=== PATIENT | female | born 2000 | race Caucasian/White ===

== ENCOUNTER 2021-02-05 20:53 | Inpatient (IN) ==
[2021-02-05 22:46] LABS: Basophils # (auto) 0.02 K/uL (0-0.2); Basophils % (auto) 0.3 %; Eosinophils # (auto) 0.05 K/uL (0-0.5); Eosinophils % (auto) 0.7 %; Hematocrit (blood only) 37.4 % (37-47); Immature Granulocytes # (auto) 0.01 K/uL (0.00-0.02); Immature Granulocytes % (auto) 0.1 %; Lymphocytes # (auto) 2.93 K/uL (1.2-3.4); Lymphocytes % (auto) 42.6 %; Mean Corpuscular Hemoglobin 32.9 pg (25-34); Mean Corpuscular Hgb Conc 34.8 g/dL (32-36); Mean Corpuscular Volume 94.7 fL (80-100); Mean Platelet Volume 9.2 fL (7.4-10.4); Monocytes # (auto) 0.48 K/uL (0.11-0.59); Neutrophils # (auto) 3.38 K/uL (1.4-6.5); Neutrophils % (auto) 49.3 %; Platelet Count 301 K/uL (130-400); RDW Coefficient of Variation 12.3 % (11.5-14.5); RDW Standard Deviation 42.2 fL (36.4-46.3); Red Blood Count 3.95 M/uL (4.2-5.4); White Blood Count 6.87 K/uL (4.8-10.8)
[2021-02-05 22:53] LABS: Albumin Level 2.8 gm/dl (3.4-5.0); BUN Creatinine Ratio 17.4 (10-20); Calcium 8.3 mg/dl (8.5-10.1); Creatinine Clr Calc Pharmacy 41.2 ml/min; Est GFR (African American) 39.9 ml/min; Est GFR (Non-African American) 34.4 ml/min; Magnesium 2.1 mg/dl (1.8-2.4); Potassium 5.9 mmol/L (3.5-5.1)
[2021-02-05 22:56] LABS: INR 1.4 (0.9-1.1); Partial Thromboplastin Ratio 1.3
[2021-02-05] MEDS ORDERED: SODIUM CHLORIDE 0.9% 1000ML 1,000 ML IV ONE (23:00)
[2021-02-05 23:04] LABS: Albumin Globulin Ratio 0.7 (0.9-2); Bilirubin,Total 0.8 mg/dl (0.2-1); Globulin 3.8 gm/dl (2.5-4.0); Thyroid Stimulating Hormone 13.7 uIu/ml (0.300-4.500); Total Protein 6.6 gm/dl (6.4-8.2)
[2021-02-05 23:25] LABS: Appearance Urine Clear (Clear); Bilirubin Urine Negative (Negative); Blood Urine Negative (Negative); Color Urine Yellow; Glucose Urine UA Negative (Negative); Ketones Urine Negative (Negative); Leukocyte Esterase Urine Negative (Negative); Nitrite Urine Negative (Negative); Protein Urine Negative (Negative); Specific Gravity Urine 1.011 (1.000-1.030); Urobilinogen Urine Negative (Negative)
[2021-02-06] MEDS ORDERED: MoRPHine SULFATE 2 MG/ML CARP IV STA (00:35)
[2021-02-06] MEDS ORDERED: SODIUM CHLORIDE 0.9% 1000ML 1,000 ML IV ONE (01:15)
[2021-02-06] MEDS ORDERED: CALCIUM GLUCONATE 1,000 MG/60 ML BAG IV STA (01:15)
[2021-02-06 02:24] LABS: Amphetamines+Metham, Urine Neg (Neg); Barbiturates, Urine Neg (Neg); Benzodiazepine, Urine Neg (Neg); Cocaine, Urine Neg (Neg); MDMA (Ecstacy), Urine Neg (Neg); Methadone, Urine Neg (Neg); Opiate, Urine Neg (Neg); Phencyclidine, Urine Neg (Neg)
[2021-02-06 02:37] LABS: T4 Free Thyroxine 1.21 ng/dl (0.8-1.6)
[2021-02-06] MEDS ORDERED: LORazepam 1 MG/2 ML VIAL IV STA (02:51)
--- NOTE | 2021-02-06 02:52 | History & Physical Report ---
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 Concern for LLE DVT with hx Superior Sagittal Sinus thromboembolism, stroke, and seizure -With history of clotting disorder and subtherapeutic on Warfarin -US doppler negative for clot -CK 72, unlikely rhabdomyolysis -At this time improved redness and warmth -Will bridge with Lovenox until INR appropriate 2-3 on warfarin -Will continue Keppra for seizure prophylaxis Alcohol Use disorder with current withdrawal -Drinks 15 hard liquor shots daily (vodka, whisky, etc) -Patient with last drink 6PM today -Alcohol level negative at this time, UDS negative -Noting she feels significant anxiety at this time, states she normally drinks to prevent withdrawals -Will give 2mg Ativan now -Will start patient on AWSS protocol with gabapentin load and Ativan PRN pushes -Folic Acid and Thiamine levels in AM -Daily Folic acid and Thiamine -Banana bag x1 now -Discussed with patient about outpatient treatment options including Naltrexone, she is interested -She states she would be unable to participate in rehab due to her parents -She DOES NOT want her parents to know about her current stay or alcohol use -Would recommend psych consult once patient is no longer in withdrawal Transaminitis -Suspect due to alcohol use -Will check hepatitis panel -CT abdomen stat read noting fatty liver without acute concerns at this time -Repeat CMP in AM RED -Creatinine elevated 2.02, suspect pre-renal etiology -Hydrated with NSS bolus x2L in the ED -Will continue with LR 100ml/hr x1L -Recheck in AM Anxiety/Depression -Suspect that patient has more than just anxiety and depression in addition to her alcohol use disorder -Will continue home Cymbalta and Abilify at this time -Patient also noting recent incident of Plan B use, but did not want to discuss the details leading to the situation at this time. 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 Patient notes that due to her history of a clotting disorder she is concerned that she may have a DVT and upon speaking with her Doughnut Dough Mixer she was instructed to present to the ED for evaluation and treatment. She notes that she had a blood clot in her head in December 31, 2020 while she was [facility] and that it caused her to have as stroke in addition to a suspected seizure. She has been taking Warfarin since then in addition to Keppra. Patient notes that while her leg has started feeling better, she does also note concerns regarding her alcohol use. She notes that she drinks 15 shots of hard liquors daily and that she has been doing so all summer. She notes that she started drinking at the end of high school and it has only worsened. She states that there have been several stressful factors leading her to drink, including more recently needing to take Plan B 5 days ago for a sexual encounter she did not "want to go into right now." She states that she typically will keep drinking to keep her withdrawal symptoms from coming on. She notes she wants to quit alcohol and wants to get help, however, her "parents won't let me go to rehab because I'll miss school." She states that she knows her drinking is not good for her health alongside her medications. She does endorse some slight abdominal discomfort as well, worse in the RLQ, but that it has not worsened and comes and goes. She is interested in quitting alcohol. She denies any known history of seizures or hallucinations, but is unsure if her previous seizure was from alcohol withdrawal vs her stroke. She currently notes significant anxiety and feelings as though she is "about to withdraw." She denies any fever, chills, SOB, chest pain, dysuria, hematuria, headache. Med Hx: Asthma, Anxiety/Depression, Clotting disorder, Superior Sagittal Sinus thromboembolism, Stroke, Seizure disorder, Alcohol use disorder Surg Hx: Sinus surgery, wisdom teeth Soc Hx: Drinks 15 shots of hard liquor daily, vapes equivalent 1 juul pod daily, last used marijuana 12/21/20 Allergies Allergy/AdvReac Type Severity Reaction Status Date / Time mold Allergy Unknown Verified 02/06/21 01:54 tree and shrub pollen Allergy Unknown Verified 02/06/21 01:54 Home Medications Medication Instructions Recorded Confirmed Type cetirizine 10 mg tablet (Zyrtec) 10 mg PO HS 02/18/18 02/06/21 History duloxetine 60 mg capsule,delayed 60 mg PO HS 02/18/18 02/06/21 History release (Cymbalta) aripiprazole 2 mg tablet 2 mg PO HS 09/29/18 02/06/21 History epinephrine 0.3 mg/0.3 mL 0.3 ml IM UD PRN #1 ea 03/07/19 02/06/21 History injection, auto-injector albuterol sulfate 90 mcg/actuation 2 puff INHALATION Q4H PRN #1 04/28/20 02/06/21 Rx aerosol inhaler inhaler fluticasone furoate 100 1 inh INHALATION DAILY #28 ea 06/15/20 02/06/21 Rx mcg-vilanterol 25 mcg/dose inhalation powder (Breo Ellipta) levetiracetam 500 mg 1,000 mg PO HS 02/06/21 02/06/21 History tablet,extended release 24 hr warfarin 2.5 mg tablet 2.5 mg PO 3XWK 02/06/21 02/06/21 History Past Med/Surg History Medical History (Updated 02/06/21 @ 07:33 by Viji Bautista PA-C) Asthma Thrombosis, superior sagittal sinus UTI (urinary tract infection) Family History Other No pertinent family history Social History Smoking Status: Current every day smoker Tobacco Type: E-cigarettes / Vaping Tobacco Cessation Education Requested by Patient: No Hx Alcohol Use: Yes Alcohol type: hard liquor Hx Substance Use: Yes Last Used Substance Other:: Adderral-Fall 2019; Marijuana mid December 2020 Substance Use Type Other:: Adderral Preferred Language: Armenian Communication Ability: Effective Online Marketing Director Required: No Beliefs That Will Affect Care: None Current Living Situation: Other Current Living Situation Comment: Roommate Other Information That Helps Us Care for You: No Feels Safe at Home: Yes Safety Concerns: Feels Safe At This Time Assistive Devices: None Review of Systems Review of Systems: ROS as above Physical Exam Constitutional: well developed, well nourished and cooperative Eyes: PERRL, conjunctivae normal, anicteric sclerae ENMT: external ear and nose normal, oropharynx normal Neck: trachea midline, no thyromegaly Respiratory: normal respiratory effort; no cough Auscultation: lungs clear to auscultation bilaterally; no diminished lung sounds, no crackles, no rales and no wheezes Cardiovascular: Rate/Rhythm: regular rate and regular rhythm Heart Sounds: normal S1 and normal S2; no murmur and no cardiac rub Vessels: no JVD Extremities: no calf tenderness and no edema Gastrointestinal (Abdomen): Inspection/Auscultation: abdomen normal to inspection and normal bowel sounds; abdomen not distended Percussion/Palpation: + abdomen tender (minimal ttp in right lower quadrant) and abdomen soft; no guarding and abdomen not rigid Musculoskeletal: no cyanosis or clubbing, extremities motor strength 5/5 Head/Neck/Chest: normocephalic and head atraumatic L thigh no longer appears red - patient has picture of the initial redness on phone Skin: no rashes, warm and dry Psychiatric: A+Ox3, euthymic affect Results & Data Results & Data ([facility]) Vital Signs (Past 12 Hours) Vital Signs Temp Pulse Pulse Resp BP BP Pulse Ox 02/06/21 01:38 111 H 18 121/80 100 02/06/21 00:46 103 H 18 121/80 98 02/05/21 23:33 99 02/05/21 23:10 90 18 122/87 99 02/05/21 21:04 37.0 C 100 H 18 129/90 98 Laboratory Results Laboratory Results WBC 6.87 K/uL (4.8-10.8) 02/05/21 22:30 RBC 3.95 M/uL (4.2-5.4) L 02/05/21 22:30 Hgb 13.0 g/dL (12.0-16.0) 02/05/21 22:30 Hct 37.4 % (37-47) 02/05/21 22:30 MCV 94.7 fL (80-100) 02/05/21 22:30 MCH 32.9 pg (25-34) 02/05/21 22: MCHC 34.8 g/dL (32-36) 02/05/21 22:30 RDW Std Deviation 42.2 fL (36.4-46.3) 02/05/21: RDW Coeff of Isela 12.3 % (11.5-14.5) 02/05/21 22: Plt Count 301 K/uL (130-400) 02/05/21 22: MPV 9.2 fL (7.4-10.4) 02/05/21: Immature Gran % (Auto) 0.1 % 02/05/21 22: Neut % (Auto) 49.3 % 02/05/21 22: Lymph % (Auto) 42.6 % 02/05/21 22: [place] % (Auto) 7.0 % 02/05/21 22:30 Eos % (Auto) 0.7 % 02/05/21 22: Baso % (Auto) 0.3 % 02/05/21 22:30 Neut # (Auto) 3.38 K/uL (1.4-6.5) 02/05/21 22: Lymph # (Auto) 2.93 K/uL (1.2-3.4) 02/05/21 22: [place] # (Auto) 0.48 K/uL (0.11-0.59) 02/05/21 22: Eos # (Auto) 0.05 K/uL (0-0.5) 02/05/21 22: Baso # (Auto) 0.02 K/uL (0-0.2) 02/05/21: Immature Gran # (Auto) 0.01 K/uL (0.00-0.02) 02/05/21 22:30 PT 14.0 Seconds (9.0-12.0) H 02/05/21 22:30 INR 1.4 (0.9-1.1) H 02/05/21 22:30 APTT 33.0 Seconds (21.0-31.0) H 02/05/21 22:30 PTT Ratio 1.3 02/05/21 22:30 Sodium 133 mmol/L (136-145) L 02/05/21 22:30 Potassium 5.9 mmol/L (3.5-5.1) H 02/05/21 22:30 Chloride 102 mmol/L (98-107) 02/05/21 22:30 Carbon Dioxide 24 mmol/L (21-32) 02/05/21 22:30 Anion Gap 7.0 (3-11) 02/05/21 22:30 BUN 35 mg/dl (7-18) H 02/05/21 22:30 Creatinine 2.02 mg/dl (0.6-1.2) H 02/05/21 22:30 Est Cr Clr Drug Dosing 41.2 ml/min 02/05/21 22:30 Est GFR ( Amer) 39.9 ml/min 02/05/21 22:30 Est GFR (Non-Af Amer) 34.4 ml/min 02/05/21 22:30 BUN/Creatinine Ratio 17.4 (10-20) 02/05/21 22:30 Glucose 107 mg/dl (70-99) H 02/05/21 22:30 Calcium 8.3 mg/dl (8.5-10.1) L 02/05/21 22: Magnesium 2.1 mg/dl (1.8-2.4) 02/05/21 22:30 Total Bilirubin 0.8 mg/dl (0.2-1) 02/05/21 22:30 AST 154 U/L (15-37) H 02/05/21 22:30 ALT 102 U/L (12-78) H 02/05/21 22:30 Alkaline Phosphatase 184 U/L (45-117) H 02/05/21 22:30 Total Creatine Kinase 72 U/L (26-192) 02/05/21 22:30 Total Protein 6.6 gm/dl (6.4-8.2) 02/05/21 22:30 Albumin 2.8 gm/dl (3.4-5.0) L 02/05/21 22:30 Globulin 3.8 gm/dl (2.5-4.0) 02/05/21 22:30 Albumin/Globulin Ratio 0.7 (0.9-2) L 02/05/21 22:30 Lipase 185 U/L (73-393) 02/05/21 22:30 TSH 13.700 uIu/ml (0.300-4.500) H 02/05/21 22:30 Free T4 1.21 ng/dl (0.8-1.6) 02/05/21 22:30 Urine Color Yellow 02/05/21 23:13 Urine Appearance Clear (Clear) 02/05/21 23:13 Urine pH 7.0 (4.5-7.5) 02/05/21 23:13 Ur Specific [place] 1.011 (1.000-1.030) 02/05/21 23:13 Urine Protein Negative (Negative) 02/05/21 23:13 Urine Glucose (UA) Negative (Negative) 02/05/21 23:13 Urine Ketones Negative (Negative) 02/05/21 23:13 Urine Blood Negative (Negative) 02/05/21 23:13 Urine Nitrite Negative (Negative) 02/05/21 23:13 Urine Bilirubin Negative (Negative) 02/05/21 23:13 Urine Urobilinogen Negative (Negative) 02/05/21 23:13 Ur Leukocyte Esterase Negative (Negative) 02/05/21 23:13 POC Ur Test NEG (NEG) 02/05/21 23:20 Urine Opiates Screen Neg (Neg) 02/05/21 23:13 Ur Methadone, Qual Neg (Neg) 02/05/21 23:13 Urine Barbiturates Neg (Neg) 02/05/21 23:13 Ur Phencyclidine (PCP) Neg (Neg) 02/05/21 23:13 U Amphetamin/Meth Scrn Neg (Neg) 02/05/21 23:13 MDMA (Ecstasy) Screen Neg (Neg) 02/05/21 23:13 U Benzodiazepines Scrn Neg (Neg) 02/05/21 23:13 Ur Cocaine Metabolite Neg (Neg) 02/05/21 23:13 U Marijuana (THC) Screen Neg (Neg) 02/05/21 23:13 Ethyl Alcohol mg/dL < 3.0 mg/dl (0-3) 02/06/21 01:53 COVID-19 Eval Order Covid19 at [facility] 02/05/21 23:19 SARS-CoV-2 (PCR) NEGATIVE (Negative) 02/05/21 23:19 Supervising Physician Co-Signing Physician Notes Attending addendum: I have physically seen this patient, have supervised the medical residents activities, and agree with the H&P unless as otherwise noted. Assessment and Plan: Acute kidney injury/hyperkalemia- Likely due to altered intake associated with alcohol abuse and withdrawal Continue rehydration with normal saline Repeat laboratories in a.m. Calcium gluconate 1 g IV for cardioprotection Abnormal LFTs- Differential including alcoholic hepatitis Persistent to the morning to further imaging Acute hepatitis profile Alcohol abuse/alcohol withdrawal- KATHY S protocol Thiamine 3 mg p.o. daily Folic acid 1 mg p.o. daily Nephrocaps 1 p.o. twice daily Counseling Remaining orders and notations as noted Resident Activity Tracking Resident Involvement: Resident Care Provided Care Provided: Adult Hospital Medicine
[2021-02-06] MEDS ORDERED: GABAPENTIN 800MG ALCOHOL WITHDRAWAL LOAD PO STA (03:04)
[2021-02-06] MEDS ORDERED: GABAPENTIN 800 MG TAB PO STA (03:24)
[2021-02-06] MEDS ORDERED: LORazepam 3 MG/6 ML VIAL IV PRN (04:53)
[2021-02-06] MEDS ORDERED: ALBUTEROL HFA 8 GM INHALER INH PRN (04:53)
[2021-02-06] MEDS ORDERED: ONDANSETRON INJ 2 MG/ML 2 ML VIAL IV PRN (04:53)
[2021-02-06] MEDS ORDERED: GABAPENTIN 400 MG CAP PO ONE (04:53)
[2021-02-06] MEDS ORDERED: ATIVAN IV ALCOHOL WITHDRAWL IV PRN (04:53)
[2021-02-06] MEDS ORDERED: LORazepam 2 MG/4 ML VIAL IV PRN (04:53)
[2021-02-06] MEDS ORDERED: ENOXAPARIN INJ 30 MG/0.3 ML SYR SQ SCH (04:53)
[2021-02-06] MEDS ORDERED: LORazepam 1 MG/2 ML VIAL IV PRN (04:53)
[2021-02-06] MEDS ORDERED: MULTI-VITAMIN INFUSION 10 ML, THIAMINE HCL 100 MG, FOLIC ACID 1 MG in SODIUM CHLORIDE 0... IV ONE (05:15)
[2021-02-06] MEDS ORDERED: LACTATED RINGER'S 1,000 ML IV SCH (06:15)
--- NOTE | 2021-02-06 07:12 | Ultrasound Report ---
BILATERAL LOWER EXTREMITY VENOUS DOPPLER HISTORY: hx clots, b/l leg pain COMPARISON STUDY: None. FINDINGS: There is normal compressibility, flow, and augmentation within the bilateral lower extremit y deep venous systems. IMPRESSION: No DVT within the right or left lower extremity. ACT 112: Negative or not required by law. Electronically signed by: Oswaldo Bryant M.D. 02/06/2021 7:11 AM
[2021-02-06 07:19] LABS: Folate (Folic Acid) 6.8 ng/ml (>5.38)
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
[2021-02-06] MEDS: THIAMINE HCL 100 MG in SYRINGE 9 ML IV SCH (08:01)
[2021-02-06] MEDS: FOLIC ACID 1 MG in SYRINGE 9.8 ML IV SCH (08:01)
--- NOTE | 2021-02-06 08:16 | XRay Report ---
XR chest 1V portable CLINICAL HISTORY: Shortness of breath. COMPARISON STUDY: Chest radiograph February 19, 2018. FINDINGS: Lung volumes are normal. Lungs are clear. There is no pneumothorax or pleural effusion. Car diac size is normal. Mediastinal contours are normal. There is no evidence for pulmonary edema. IMPRESSION: No acute cardiopulmonary findings. ACT 112: Negative or not required by law. Electronically signed by: Bobby Delarosa M.D. 02/06/2021 8:14 AM
[2021-02-06 08:46] LABS: Hepatitis B Surf Ag Rflx Conf Neg (Neg)
[2021-02-06] MEDS: FLUTICASONE/VILANTEROL 100/25MCG 14 PUFFS/INHALER INH SCH (08:52)
[2021-02-06 08:53] LABS: Alanine Aminotransferase 42 U/L (12-78); Albumin Globulin Ratio 1.3 (0.9-2); Albumin Level 3.7 gm/dl (3.4-5.0); Alkaline Phosphatase 39 U/L (45-117); Aspartate Aminotransferase 24 U/L (15-37); BUN Creatinine Ratio 5.2 (10-20); Bilirubin,Total 0.5 mg/dl (0.2-1); Blood Urea Nitrogen 3 mg/dl (7-18); Carbon Dioxide 22 mmol/L (21-32); Chloride 112 mmol/L (98-107); Creatinine Clr Calc Pharmacy 143.6 ml/min; Est GFR (African American) > 150.0 ml/min; Est GFR (Non-African American) 131.8 ml/min; Globulin 2.8 gm/dl (2.5-4.0); Glucose 87 mg/dl (70-99); Potassium 3.8 mmol/L (3.5-5.1); Sodium 140 mmol/L (136-145); Total Protein 6.5 gm/dl (6.4-8.2)
[2021-02-06] MEDS: GABAPENTIN 400 MG CAP PO SCH ×2 (08:55→16:25)
[2021-02-06 09:15] LABS: Hepatitis C IgG 13Yrs+Old_Rflx Neg (Neg)
--- NOTE | 2021-02-06 10:27 | CT Scan Report ---
CT SCAN OF THE ABDOMEN AND PELVIS WITHOUT CONTRAST CLINICAL HISTORY: elevated LFT COMPARISON STUDY: July 02, 2020 TECHNIQUE: CT scan of the abdomen and pelvis was performed from the lung bases to the proximal femurs . Images are reviewed in the axial, sagittal, and coronal planes. IV contrast was not administered fo r this examination. A dose lowering technique was utilized adhering to the principles of ALARA. CT DOSE: 299.81 mGy.cm FINDINGS: Lower chest: The heart is normal in size and configuration, without pericardial effusion. The lung ba ses and pleural spaces are clear. Liver: Diffuse decrease in attenuation of liver parenchyma without evidence of focal lesions or intra hepatic biliary dilatation. Gallbladder: Unremarkable. Spleen: Normal in size and attenuation. Pancreas: Unremarkable. Adrenal glands: Unremarkable. Kidneys: The unenhanced kidneys are normal in size without hydronephrosis. There is no contour deform ing renal mass lesion. No renal calculi are identified. Bowel: Bowel loops are nondilated. Appendix is normal in caliber. Overall evaluation is limited due t o lack of contrast. Peritoneum: There is no intraperitoneal free air or abdominal ascites. There is mild diffuse mesenteric edema. Vasculature: The abdominal aorta is normal in course and caliber. Adenopathy: Innumerable retroperitoneal and mesenteric lymph nodes are seen measuring less than 1 cm in short axis, considered nonpathological according to CT size criteria, likely reactive. Pelvic viscera: Urinary bladder is partially decompressed which slightly limits evaluation. Uterus is normal in size. Cystic appearance of the bilateral adnexa, measuring 3.3 cm on the left and 3.8 cm o n the right. Skeletal structures: No destructive osseous lesions are seen. Focal edema of the left anterior abdominal wall as well as multiple subcutaneous nodules within the r ight and left abdominal wall, might represent injection granulomas versus other etiology. IMPRESSION: 1. Hepatic steatosis. 2. Nondilated loops of bowel. Normal appendix. Mild mesenteric edema-finding of unknown etiology. Pl ease correlate above-mentioned findings with prior history and clinical presentation of abdominal que n. 3. Cystic appearance of bilateral adnexa, might represent ovarian cysts or physiologic follicles. Fo llow-up evaluation with pelvic ultrasound in 2 evaluation cycles is suggested to document improvement /resolution. 4. The rest of findings as above. ACT 112: Negative or not required by law. The above report was generated using voice recognition software. It may contain grammatical, syntax o r spelling errors. Electronically signed by: Ivy Shi DO 02/06/2021 10:25 AM
[2021-02-06] MEDS: ENOXAPARIN 80 MG/0.8 ML SYR SQ SCH ×2 (10:36→20:18)
[2021-02-06] MEDS ORDERED: WARFARIN SOD 2.5 MG TAB PO SCH (16:00)
--- NOTE | 2021-02-06 20:11 | Billing Data ---
Date of Service February 06, 2021 Coding Level of Care Code 26136 Initial Inpt Care Lvl 3
[2021-02-06] MEDS ORDERED: ACETAMINOPHEN 500 MG TAB PO PRN (20:52)
[2021-02-06] MEDS ORDERED: levETIRAcetam 500 MG TAB PO SCH (21:00)
[2021-02-06] MEDS ORDERED: DULoxetine HCL 60 MG CAP PO SCH (21:00)
[2021-02-06] MEDS ORDERED: ARIPIprazole 1 MG/ML ORAL SOLN 150 ML BTL PO SCH (21:00)
[2021-02-06] MEDS ORDERED: MELATONIN 3 MG TAB PO PRN (21:56)
[2021-02-06] MEDS ORDERED: DICLOFENAC SOD 1% GEL 100 GM TUBE EXT PRN (22:59)
--- NOTE | 2021-02-06 22:59 | Communication Note ---
Date of Service: February 06, 2021 Asked to evaluate patient due to concerns of chest pain in addition to L arm twitching. Met with patient at bedside, patient observed from hallway seated comfortably in chair looking at her phone. While discussing with patient she notes that she has started having these chest discomfort and arm twitching about 20-30 minutes ago. States that she has had similar feelings in regards to the chest pain when she had costochondritis. Notes it is tender to palpation overlying her sternum, more on the L side. She also has visible L arm twitch that appear to affect primarily the proximal portion of the L arm. She notes she has never had this before and that it does not seem to worsen with movement. Exam: CNII-12 intact, no nystagmus, slight headache with convergence testing. Muscle strength testing of LUE 5/5 in all movements with occasional "twitches" noted. Chest tender to palpation along costochondral junction of ribs 2-4 Plan: -EKG without acute ST-Twave changes concerning for ischemia -Suspect costochondritis at this time, will order for Diclofenac gel BID PRN -?arm twitches in addition to headache - with patients history of superior sa gittal sinus thrombosis, sz, and stroke, will order for CT head w/o -?complex migraine vs alcohol withdrawal symptoms (though last AWSS 2) -Will continue to monitor patient throughout the night Resident Activity Tracking Resident Involvement: Resident Care Provided and Process Development Manager Coverage Note Care Provided: Adult Hospital Medicine
--- NOTE | 2021-02-06 23:35 | Electrocardiogram Report ---
Test Reason : Blood Pressure : / mmHG Vent. Rate : 081 BPM Atrial Rate : 081 BPM P-R Int : 160 ms QRS Dur : 072 ms QT Int : 372 ms P-R-T Axes : 037 049 038 degrees QTc Int : 432 ms Normal sinus rhythm Normal ECG When compared with ECG of 02-JUL-2020 15:24, No significant change was found Confirmed by Washington Blair ([id number]) on 02/06/2021 11:35:37 PM Referred By: REFERRED SELF Confirmed By:Washington Blair
[2021-02-06] MEDS ORDERED: KETOROLAC TROMETHAMINE 15 MG/ML VIAL IV ONE (23:45)
[2021-02-07] MEDS: GABAPENTIN 400 MG CAP PO SCH ×2 (00:44→08:19)
[2021-02-07 05:40] LABS: Hepatitis A Antibody IgM NON-REACTIVE (NON-REACTIVE); Hepatitis B Core Antibody IgM NON-REACTIVE (NON-REACTIVE)
--- NOTE | 2021-02-07 05:49 | Electrocardiogram Report ---
Test Reason : Blood Pressure : / mmHG Vent. Rate : 080 BPM Atrial Rate : 080 BPM P-R Int : 148 ms QRS Dur : 084 ms QT Int : 386 ms P-R-T Axes : 049 054 042 degrees QTc Int : 445 ms Sinus rhythm with marked sinus arrhythmia Otherwise normal ECG When compared with ECG of 05-FEB-2021 22:57, No significant change was found Confirmed by Washington Blair ([id number]) on 02/07/2021 5:49:41 AM Referred By: REFERRED SELF Confirmed By:Washington Blair
[2021-02-07 07:02] LABS: Basophils # (auto) 0.02 K/uL (0-0.2); Basophils % (auto) 0.5 %; Eosinophils # (auto) 0.08 K/uL (0-0.5); Eosinophils % (auto) 2.1 %; Hematocrit (blood only) 34.8 % (37-47); Hemoglobin 11.8 g/dL (12.0-16.0); Immature Granulocytes # (auto) 0.01 K/uL (0.00-0.02); Immature Granulocytes % (auto) 0.3 %; Lymphocytes # (auto) 1.76 K/uL (1.2-3.4); Lymphocytes % (auto) 45.8 %; Mean Corpuscular Hgb Conc 33.9 g/dL (32-36); Mean Corpuscular Volume 94.3 fL (80-100); Mean Platelet Volume 9.8 fL (7.4-10.4); Monocytes # (auto) 0.39 K/uL (0.11-0.59); Monocytes % (auto) 10.2 %; Neutrophils # (auto) 1.58 K/uL (1.4-6.5); Neutrophils % (auto) 41.1 %; Platelet Count 231 K/uL (130-400); RDW Coefficient of Variation 12.6 % (11.5-14.5); RDW Standard Deviation 42.1 fL (36.4-46.3); Red Blood Count 3.69 M/uL (4.2-5.4); White Blood Count 3.84 K/uL (4.8-10.8)
--- NOTE | 2021-02-07 07:15 | CT Scan Report ---
CT OF THE HEAD WITHOUT CONTRAST CLINICAL HISTORY: L arm twitch, headache, hx stroke/sz COMPARISON STUDY: No previous studies for comparison. CT DOSE: 537.48 mGy.cm TECHNIQUE: Helical axial images of the head were obtained without IV contrast. Automated exposure con trol was utilized for the study. A dose lowering technique was utilized adhering to the principles o f ALARA. FINDINGS: No acute intracranial hemorrhage, midline shift or mass effect is present. The ventricular system is unremarkable. The basal cisterns are patent. No extra-axial collections are present. There are no findings to suggest acute dural sinus thrombosis or acute territorial infarct. No significant calvarial abnormalities are present. Visualized portions of the sinuses and mastoid air cells are satish ar. IMPRESSION: No acute intracranial findings. ACT 112: Negative or not required by law. Electronically signed by: Bobby Delarosa M.D. 02/07/2021 7:14 AM
[2021-02-07 07:22] VITALS: O2SAT 97
[2021-02-07 07:24] LABS: Albumin Level 3.2 gm/dl (3.4-5.0); BUN Creatinine Ratio 9.7 (10-20); Calcium 8.7 mg/dl (8.5-10.1); Creatinine Clr Calc Pharmacy 134.4 ml/min; Est GFR (African American) 149.4 ml/min; Est GFR (Non-African American) 128.9 ml/min; Potassium 3.8 mmol/L (3.5-5.1)
[2021-02-07 07:28] LABS: Albumin Globulin Ratio 1.3 (0.9-2); Bilirubin,Total 0.7 mg/dl (0.2-1); Globulin 2.6 gm/dl (2.5-4.0); Total Protein 5.8 gm/dl (6.4-8.2)
[2021-02-07 07:51] LABS: INR 1.3 (0.9-1.1); Partial Thromboplastin Ratio 1.1; Partial Thromboplastin Time 29.3 Seconds (21.0-31.0); Prothrombin Time 12.5 Seconds (9.0-12.0)
[2021-02-07] MEDS: FOLIC ACID 1 MG in SYRINGE 9.8 ML IV SCH (08:19)
[2021-02-07] MEDS: THIAMINE HCL 100 MG in SYRINGE 9 ML IV SCH (08:19)
[2021-02-07] MEDS ORDERED: CYANOCOBALAMIN 500 MCG TABLET (VITAMIN B-12) PO SCH (09:00)
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
[2021-02-07] MEDS: ENOXAPARIN 80 MG/0.8 ML SYR SQ SCH (10:25)
[2021-02-07] MEDS: FLUTICASONE/VILANTEROL 100/25MCG 14 PUFFS/INHALER INH SCH (10:26)
[2021-02-07 12:12] VITALS: PULSE 68; TEMP 97.5
[2021-02-07 12:52] VITALS: BP 103/66
--- NOTE | 2021-02-07 18:35 | Discharge Summary ---
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 Patient notes that due to her history of a clotting disorder she is concerned that she may have a DVT and upon speaking with her Cab Worker she was instructed to present to the ED for evaluation and treatment. She notes that she had a blood clot in her head in December 31, 2020 while she was [facility] and that it caused her to have as stroke in addition to a suspected seizure. She has been taking Warfarin since then in addition to Keppra. Patient notes that while her leg has started feeling better, she does also note concerns regarding her alcohol use. She notes that she drinks 15 shots of hard liquors daily and that she has been doing so all summer. She notes that she started drinking at the end of high school and it has only worsened. She states that there have been several stressful factors leading her to drink, including more recently needing to take Plan B 5 days ago for a sexual encounter she did not "want to go into right now." She states that she typically will keep drinking to keep her withdrawal symptoms from coming on. She notes she wants to quit alcohol and wants to get he lp, however, her "parents won't let me go to rehab because I'll miss school." She states that she knows her drinking is not good for her health alongside her medications. She does endorse some slight abdominal discomfort as well, worse in the RLQ, but that it has not worsened and comes and goes. She is interested in quitting alcohol. She denies any known history of seizures or hallucinations, but is unsure if her previous seizure was from alcohol withdrawal vs her stroke. She currently notes significant anxiety and feelings as though she is "about to withdraw." She denies any fever, chills, SOB, chest pain, dysuria, hematuria, headache. Med Hx: Asthma, Anxiety/Depression, Clotting disorder, Superior Sagittal Sinus thromboembolism, Stroke, Seizure disorder, Alcohol use disorder Surg Hx: Sinus surgery, wisdom teeth Soc Hx: Drinks 15 shots of hard liquor daily, vapes equivalent 1 juul pod daily, last used marijuana 12/21/20 Admission Exam Per Admitting Provider Constitutional: well developed, well nourished and cooperative Eyes: PERRL, conjunctivae normal, anicteric sclerae ENMT: external ear and nose normal, oropharynx normal Neck: trachea midline, no thyromegaly Respiratory: normal respiratory effort; no cough Auscultation: lungs clear to auscultation bilaterally; no diminished lung sounds, no crackles, no rales and no wheezes Cardiovascular: Rate/Rhythm: regular rate and regular rhythm Heart Sounds: normal S1 and normal S2; no murmur and no cardiac rub Vessels: no JVD Extremities: no calf tenderness and no edema Gastrointestinal (Abdomen): Inspection/Auscultation: abdomen normal to inspection and normal bowel sounds; abdomen not distended Percussion/Palpation: + abdomen tender (minimal ttp in right lower quadrant) and abdomen soft; no guarding and abdomen not rigid Musculoskeletal: no cyanosis or clubbing, extremities motor strength 5/5 Head/Neck/Chest: normocephalic and head atraumatic L thigh no longer appears red - patient has picture of the initial redness on phone Skin: no rashes, warm and dry Psychiatric: A+Ox3, euthymic affect Principal Diagnosis Alcohol use disorder Discharge Exam Cardiovascular Normal rate and rhythm. Normal S1 and S2. No murmurs, gallops, or rubs. Capillary refill <2s. Normal pedal pulses. No erythema, edema. Chest (Breasts) Additional Comments: Chest tenderness along the left costochondral junction of rib 2-3. No signs of respiratory distress. Gastrointestinal (Abdomen) Tender to palpation in LLQ. No guarding or rebound tenderness. Skin No spider angioma. No palmar erythema. Neurologic Sharp pain between eyebrows during convergence testing. CN II-XII are intact. Muscle strength 5/5 bilaterally to upper and lower extremities. Reflexes 2+ bilaterally. Memory is normal and thought processes are intact. Psychiatric ppropriate mood and affect. Good judgment and insight. No agitation. No visual or auditory hallucination. No suicidal or homicidal ideation. 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 She presented to the ED yesterday at 3 AM for concerns about a possible blood clot, which has since been ruled out as suspected IT band syndrome. She also has an alcohol use disorder, for which we are currently managing withdrawal symptoms with AWSS protocol which includes Gabapentin 400 mg PO Q8H and Ativan PRN. Alcohol use disorder - Suspect secondary to self-medication attempt at treating anxiety/depression - AUDIT-C 10, CAGE 4 - AWSS protocol with gabapentin load and Ativan PRN pushes on admission - Daily folate and thiamine until discharge - AWSS score on admission was 4, peaked at 6, decreased to 1 at discharge - State of change: Determination to Action. Chest pain - suspected costochondritis - pt improved with Diclofenac gel BID PRN overnight Arm twitching - Resolved - initial concern for alcohol withdrawal tremor vs. transient focal tonic-clonic seizure vs. pseudoseizure - continue home dose Keppra - head CT negative for hemorrhagic transformation of known sagittal sinus thrombus Low vitamin B12 levels - Level at 272 - Likely secondary to alcohol use disorder - Recommend -PO B12 following discharge - Recheck level in 6 months Subtherapeutic INR - INR on admission was 1.4, decreased to 1.3 on Lovenox bridge - Recheck INR in 2 days - Continue to bridge with Lovenox until appropriate INR for therapeutic warfarin - Once therapeutic, change 2.5 mg Warfarin to 5mg Abdominal pain on physical exam - Abdomen CT revealed hepatic steatosis, mild mesenteric edema, and cystic appearance of bilateral adnexa. - Suspect secondary to combination of constipation and potential ovarian cysts. - Miralax PRN - Tenderness improved although still present in LLQ Possible ovarian cysts - Pelvic CT showed cystic appearance of bilateral adnexa, suspect physiologic - Radiology recommended F/U with pelvic ultrasound after 2 menstrual cycles Hepatic steatosis - Noted on abdominal pelvic CT - Encourage lifestyle modification Diet: Regular DVT prophylaxis; on Coumadin Dispo: med surg with tele Code status: full Total Time Total Time Spent Total Time Spent (In Minutes): <30 Discharge Plan Discharge Items Patient Disposition: Home - Self-Care Reason For Visit: RED, TRANSAMINITIS Discharge Diagnosis: Alcohol Withdrawal Activity: Resume your previous activity Non-emergency contact: Primary Care Provider Call non-emergency contact if: you have any medication questions Follow-up/Referrals: Chepe Gutierrez DO [Resident] - 02/13/21 3:50 pm () Diet: Regular Ambulatory Orders: Prothrombin Time INR (Timed) Timeframe: 1 Day Location: Determined by Patient Ordered By: Tete Blake Attending Provider Instructions: You came to [facility] for evaluation of left thigh pain, with concerns for a blood clot. Fortunately, the ultrasound showed no evidence of a blood clot. Your INR (a maker that shows how thin you blood is) - was below goal when we checked it while you were in the hospital. In response, we are going to increase your warfarin dose to 5mg daily. Second, we want you to 'bridge' you with daily Lovenox injections until your INR reaches a goal level of between 2 and 3 (as it takes several days for the warfarin to adequately thin your blood). Once your INR is at goal, you can stop the Lovenox. * A coupon was provided to you with hopes to reduce your cost of the Lovenox at your pharmacy. * An order is provided for you to have your INR checked tomorrow, , 02/08/21. We will contact you with your results on 02/09/21. As for your alcohol use disorder, we applaud you for your desire to become sober. We recommend you establish with counseling at [facility]. You can also discuss starting the medication naltrexone to reduce alcohol cravings at your hospital follow-up visit. Please schedule a follow-up visit with Dr. Chepe Gutierrez at [facility], [address], within the next 1-2 weeks. Please call [phone]. Pending Studies at Discharge: No Stand-Alone Forms: My [facility], Smoking Cessation Medications and DC Order Prescriptions: New cyanocobalamin (vitamin B-12) 1,000 mcg tablet 1,000 mcg PO DAILY Qty: 30 RF: 0 enoxaparin [Lovenox] 80 mg/0.8 mL Syringe 70 mg subcut Q12H 3 Days Qty: 4.2 RF: 0 warfarin 5 mg tablet 5 mg PO DAILY Qty: 30 RF: 0 Continued epinephrine 0.3 mg/0.3 mL auto-injector 0.3 ml IM UD PRN (Reason: Anaphylaxis) Qty: 1 RF: 0 Breo Ellipta 100-25 mcg/dose blister with device 1 inh inhalation DAILY Qty: 28 RF: 6 albuterol sulfate 90 mcg/actuation HFA aerosol inhaler 2 puff inhalation Q4H PRN (Reason: shortness of breath) Qty: 1 RF: 3 duloxetine [Cymbalta] 60 mg Capsule,Delayed Release(Dr/Ec) 60 mg PO HS RF: 0 cetirizine [Zyrtec] 10 mg Tablet 10 mg PO HS RF: 0 aripiprazole 2 mg tablet 2 mg PO HS RF: 0 levetiracetam 500 mg tablet extended release 24 hr 1,000 mg PO HS RF: 0 Discontinued warfarin 2.5 mg tablet 2.5 mg PO 3XWK RF: 0 Discharge Orders: Discharge Order (Routine); Ordered 02/07/21 Ordered By: Tete Murguia Admission Data Admit Date/Time: 02/06/21 03:04 Attending Provider: Joseph Banuelos Admit Provider: Tony Flowers Primary Care Provider: [facility] Other Providers: Alessio June Other Interventions: Discharge Summary Assessment (RN) Last Done: 02/07/21 12:49 Supervising Physician Co-Signing Physician Notes I personally examined the patient and verified all vela points of history and exam, discussed case, and agree with decision making with Aravind Ivory MS2. feeling good overlall feeling good to go home. Discussed anticoagulationshe is comfortable self dosing with Lovenox. Discussed follow-up INRshe will be following up with R1 as PCP, and will have INR checked at his office on Friday. Vitals noted, in general she is awake and alert pleasant mildly anxious no distress. HEENT normocephalic atraumatic mucous membranes moist. Breathing unlabored no accessory muscle use good effort. Skin shows no rashes no pallor or icterus. Neuro without focal deficits. Alcohol abuse, mild alcohol withdrawal, alcoholic steatohepatitiswants sobriety. Has set up multiple outpatient resources and counseling herself already. Will establish with resident physician his PCP for continuity. Appears very stable for homeshe had mild withdrawal yesterday and none really today. No need for ongoing inpatient monitoring. Depression and anxietycontinue current care for now, PCP will review med management and possibly alter things over time. Dural venous sinus thrombosis and seizureINR lowbridging with warfarin, in discussion with her, her dose was quite low at 2.5 mg 3 times a week. We will discharge her on 5 mg daily. Follow-up INR in 2 days, bridge with Lovenox until her INR is greater than 2. Adjust dose from there based on her results. Otherwise as above.
--- NOTE | 2021-02-07 18:39 | Billing Data ---
Date of Service February 07, 2021 Coding Level of Care Code D/C DAY MANAGEMENT <30 MINS
--- NOTE | 2021-02-08 05:38 | Electrocardiogram Report ---
Test Reason : Blood Pressure : / mmHG Vent. Rate : 098 BPM Atrial Rate : 098 BPM P-R Int : 154 ms QRS Dur : 074 ms QT Int : 346 ms P-R-T Axes : 033 061 049 degrees QTc Int : 441 ms Normal sinus rhythm Normal ECG When compared with ECG of 06-FEB-2021 10:33, No significant change was found Confirmed by Washington Blair ([id number]) on 02/08/2021 5:38:45 AM Referred By: REFERRED SELF Confirmed By:Washington Blair
[2021-02-08] MEDS ORDERED: GABAPENTIN 400 MG CAP PO SCH (06:00)
[2021-02-09] MEDS ORDERED: GABAPENTIN 400 MG CAP PO SCH (18:00)
== END 2021-02-07 13:25 | disposition home or self-care (01) | DRG 897 ==
LOC: ED 20:53 → SUATTDRO 02-06 03:04 → 2N 02-06 03:04